=== PATIENT | female | born 1945 | race Caucasian/White ===

== ENCOUNTER 2018-11-11 11:00 | Outpatient (CLI) | payer MEDICARE ==
[~2018-11-11] VITALS: Ht 154 cm; Wt 61.3 kg
[~2018-11-11 11:00] MED LIST: CALC-656 PO; CALC600T12 PO; CITA40TA19 PO; LEVO125T6 PO; MAGN100T3 PO; OMEG1CAP26 PO; ROSU20TA32 PO; TRIA1CAP4 PO
== END 2018-11-11 12:29 | disposition home or self-care (01) ==
LOC: PREOP 11:00
PROVIDERS: ATTEND Podiatrist Foot & Ankle Surgery
DX: Z01.818 Encounter for other preprocedural examination (principal)

== ENCOUNTER 2018-11-14 06:13 | Day surgery (SDC) | payer MEDICARE ==
[2018-11-14] VITALS (11 sets, daily range): BP systolic 109–148; BP diastolic 58–81
[~2018-11-14] VITALS: Ht 154 cm; Wt 61.3 kg
[2018-11-14] MEDS ORDERED: ceFAZolin INJECTION 1,000 MG in WATER (STERILE) FOR INJECTION 10 ML IV ONE (06:15)
[2018-11-14] MEDS ORDERED: CATHETER FLUSH 10 ML SYR IV PRN (06:45)
[2018-11-14] MEDS: LACTATED RINGERS 1,000 ML IV PRN ×2 (06:45→08:50)
[2018-11-14] MEDS ORDERED: fentaNYL INJECTION 100 MCG/2 ML AMP ONE (07:04)
[2018-11-14] MEDS ORDERED: MIDAZOLAM 2 MG/2 ML (VERSED) VIAL ONE (07:04)
[2018-11-14] MEDS ORDERED: LIDOCAINE 1% INJ 20 ML 20 ML VIAL ONE (07:15)
[2018-11-14] MEDS ORDERED: DEXAMETHASONE 10 MG/ML (DECADRON) 1 ML VIAL ONE (07:15)
[2018-11-14] MEDS ORDERED: BUPIVACAINE 0.5% 30 ML (SENSORCAINE) VIAL ONE (07:15)
--- NOTE | 2018-11-14 07:43 | Progress Note-Pre Operative ---
Pre-Operative Progress Note H&P Reviewed The H&P was reviewed, patient examined and no changes noted. Date Seen by Provider: Nov 14, 2018 Time Seen by Provider: 07:42 Date H&P Reviewed: Nov 14, 2018 Time H&P Reviewed: 07:42 Pre-Operative Diagnosis: Metatarsalgia 2nd and 3rd, Hammertoes 2nd and 3rd, left foot JEREMI MALDONADO DPM Nov 14, 2018 07:43
[2018-11-14] MEDS ORDERED: proPOfol 200 MG/20 ML (DIPRIVAN) VIAL IV ONE (08:13)
[2018-11-14] MEDS ORDERED: ONDANSETRON 4 MG/2 ML (SDV) Z0FRAN ONE (08:13)
[2018-11-14] MEDS ORDERED: SEVOFLURANE (ULTANE) 15 ML INHAL SOLN ONE ×7 (08:13→09:43)
[2018-11-14] MEDS ORDERED: LIDOCAINE PF 2% 5 ML (XYLOCAINE) VIAL ONE (08:13)
[2018-11-14] MEDS ORDERED: ONDANSETRON 4 MG/2 ML (SDV) Z0FRAN IVP PRN (09:45)
[2018-11-14] MEDS ORDERED: HYDROcodone/APAP 5 MG/325 MG (LORTAB) TAB PO PRN (09:45)
[2018-11-14] MEDS ORDERED: morphine INJ 10 MG/ML 1ML (SYR OR VIAL) IVP ONE (09:45)
[2018-11-14] MEDS ORDERED: LACTATED RINGERS 1,000 ML IV SCH (09:45)
--- NOTE | 2018-11-14 09:45 | Progress Note-Post Operative ---
Post-Operative Progess Note Surgeon (s)/Visual Artist (s) Surgeon JEREMI MALDONADO DPM Visual Artist: none Pre-Operative Diagnosis Metatarsalgia 2nd and 3rd, Hammertoes 2nd and 3rd, left foot Post-Operative Diagnosis same Procedure & Operative Findings Date of Procedure 11/14/18 Procedure Performed/Findings Reduction of hammertoes 2nd and 3rd, metatarsal osteotomies 2nd and 3rd, left foot Anesthesia Type General Estimated Blood Loss Estimated blood loss (mL): Minimal Specimens/Packing Specimens Removed none JEREMI MALDONADO DPM Nov 14, 2018 09:45
[2018-11-14] MEDS ORDERED: CEPH500C PO (09:49)
[2018-11-14] MEDS ORDERED: ACHD5005 PO (09:49)
[2018-11-14] MEDS ORDERED: fentaNYL INJECTION 100 MCG/2 ML AMP IVP ONE (10:00)
--- NOTE | 2018-11-14 10:20 | Diagnostic Imaging Report ---
Left foot 1001 hours. INDICATION: Postop. AP and lateral views were obtained. FINDINGS: The prior left foot exam of 03/13/2010 noted postoperative changes consistent with osteotomies of the base of the proximal phalanx of the great toe and the neck of the first metatarsal. On this exam, the osteotomies have healed. The orthopedic fixation wire seen previously appear stable. There are now orthopedic fixation wires longitudinally traversing the phalanges and the proximal halves of the second and third metatarsals. There has been an interval osteotomy of the neck of the second and third metatarsals as well. The orthopedic hardware seems to be in good position. There is no fracture or acute bony abnormality appreciated. 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 The Lisfranc joint seems well-maintained. Small calcaneal spur seen previously is again evident. The soft tissues are unremarkable. IMPRESSION: 1. There are recent postoperative changes involving the second and third rays as described above. There is no acute bony abnormality evident. 2. The postoperative changes involving the first ray noted on the prior exam have healed. Dictated by: Dictated on workstation # [id number]
--- NOTE | 2018-11-14 10:35 | Diagnostic Imaging Report ---
INDICATION: Fluoroscopy during left foot surgery. FINDINGS: Fluoroscopy was provided during left foot surgery. 1.2 seconds of fluoroscopic time was utilized. Images demonstrate K wires transfixing the second and third MTP joints. There are screws and osteotomy in the distal first metatarsal. There is osteotomy with a cerclage wire in the proximal phalanx of the great toe as well. IMPRESSION: Fluoroscopy during left foot surgery. Dictated by: Dictated on workstation # [id number]
--- NOTE | 2018-11-14 11:10 | Anesthesia-General Post-Op ---
General Patient Condition Mental Status/LOC: Same as Preop Cardiovascular: Satisfactory Nausea/Vomiting: Absent Respiratory: Satisfactory Pain: Controlled Complications: Absent Post Op Complications Complications None Follow Up Care/Instructions Patient Instructions None needed. Anesthesia/Patient Condition Patient Condition Patient is doing well, no complaints, stable vital signs, no apparent adverse anesthesia problems. No complications reported per nursing. ANGELO NOE CRNA Nov 14, 2018 11:10
--- NOTE | 2018-11-14 15:18 | OPERATIVE REPORT ---
DATE OF SERVICE: 11/14/2018 SURGEON: Tabitha Maldonado DPM. PREOPERATIVE DIAGNOSES: 1. Hammer digit syndrome, second and third digits, left foot. 2. Metatarsalgia, second and third metatarsals, left foot. POSTOPERATIVE DIAGNOSES: 1. Hammer digit syndrome, second and third digits, left foot. 2. Metatarsalgia, second and third metatarsals, left foot. PROCEDURES: 1. Reduction of hammertoes, second and third digits, left foot. 2. Second and third metatarsal osteotomies, left foot. WOUND CLASS: Clean. ANESTHESIA: General. HEMOSTASIS: Pneumatic thigh tourniquet at 250 mmHg. INDICATION: This is a 73-year-old female, who presents complaining of painful toes and forefoot on the left lower extremity. Conservative therapy is met with unsatisfactory results and the patient is agreeable to surgical intervention after risks and complications were discussed at length. No guarantees were extended to the patient and she is willing to proceed. DESCRIPTION OF PROCEDURE: The patient was brought back to the operating room table, placed in secure supine position. Appropriate timeout was performed. Pneumatic thigh tourniquet was placed on left lower extremity over several layers of padding. General anesthetic was then induced. The left foot was anesthetized utilizing 10 mL of 1:1 mixture of 1% Xylocaine, 0.5% Marcaine injected in local infusion to the second and third rays of the left foot. The left foot was then prepped and draped in normal sterile manner. The left foot was then elevated and allowed to exsanguinate after which the tourniquet was inflated to 250 mmHg. Attention was then directed to the dorsal aspect of the second and third rays where approximately 4 cm longitudinal linear incision was created starting at the surgical neck of the second and third metatarsals extending distally to the distal interphalangeal joint area. The incisions were deepened in the same plane with great care to identify and retract all vital neurovascular structures. All the necessary blood vessels were cauterized as encountered to both incisions. The incisions were deepened down to the extensor tendon where a Z slide lengthening was performed overlying the proximal interphalangeal joint area. The extensor tendons were then reflected proximally and the extensor singh released overlying the second and third metatarsal. A dorsal capsulorrhaphy was performed to the second and third metatarsophalangeal joints. This allowed the proximal phalanx to come down into more rectus alignment, also release of the lateral collateral ligaments were performed. This allowed the digit to translocate medially and to come into more rectus alignment. Attention was then directed to the surgical neck of the second and third metatarsals where subperiosteal dissection was performed. Two bone cuts were performed. The distal cut was partial, allowing for lateral cortices to be held intact. The more proximal cut was from medial, lateral and was through and through. The distance between the two bone cuts was approximately 1.5 mm to 2 mm. Next, a sagittal cut was performed between the distal and proximal medial to lateral osteotomies. The cut was performed in such a way that allowed a lateral shelf of approximately 2 mm. The section of bone was withdrawn. This allowed the capital fragment to translocate proximally and shift laterally. Excellent bony apposition was appreciated at this time to both the third and second metatarsal osteotomy site. The wounds were flushed with copious amounts of normal saline. Next, an arthrodesis was performed to the proximal interphalangeal joint of the second and third digits. The same procedure was performed as follows: Dissection was carried out to the proximal interphalangeal joint where the medial and lateral collateral ligaments were released. The head of the proximal phalanx was fashioned into a peg utilizing a power sagittal saw and a power bur. A bur was utilized to create a hole in the base of the middle phalanx. Next, the wounds were flushed with copious amounts of normal saline. A 0.054 K-wire was driven down the digits securing the digits in rectus alignment. The K-wire was then retrograded proximally across the metatarsophalangeal joint and across the second and third metatarsal osteotomies. The excess K-wire was cut and a protective ball placed over the end of the wire. Appropriate alignment was confirmed by intraoperative C-arm. The wounds were flushed once again and closure was performed in layers. Deep closure was performed with 3-0 Vicryl, superficial with 4-0 Vicryl, skin closure with 4-0 Prolene in a horizontal mattress type stitch. Postoperative injection consisted of 13 mL of 1:1 mixture of 1% Xylocaine, 0.5% Marcaine injected in local infusion to the surgical sites. Also, 10 mg of dexamethasone was also utilized proximal to the incisions. Once the tourniquet was released, appropriate cap refill time was noted to all digits of the left foot. Postoperative dressing consisted of Betadine soaked Adaptic, sterile 4 x 4, sterile Kerlix all secured with a Coban wrap. The patient tolerated the anesthesia and procedure well and was transported from the operating room to the recovery area with vital signs stable and vascular status intact to all digits of the left foot and the patient is to follow up in my office in 10 days' period of time or sooner if necessary. She indicates that she has had intolerance to Percocet and narcotics in the past, but has tolerated Vicodin all right. A prescription for Vicodin was then dispensed for moderate to severe pain. Otherwise, she will take her Tylenol or ibuprofen. She was also given a prescription for Keflex. Job ID: [id number] DocumentID: [id number] Dictated Date: 11/14/2018 09:59:02 Uptwister Tender Date: 11/14/2018 15:16:52 Dictated By: TABITHA MALDONADO DPM
== END 2018-11-14 11:55 | disposition home or self-care (01) ==
LOC: SDC 06:13
PROVIDERS: ATTEND Podiatrist Foot & Ankle Surgery
DX: M20.42 Other hammer toe(s) (acquired), left foot (principal); M77.42 Metatarsalgia, left foot; I10 Essential (primary) hypertension; E03.9 Hypothyroidism, unspecified; E78.2 Mixed hyperlipidemia; F41.8 Other specified anxiety disorders; Z90.710 Acquired absence of both cervix and uterus; Z88.5 Allergy status to narcotic agent; Z88.8 Allergy status to other drugs, medicaments and biological substances; Z80.1 Family history of malignant neoplasm of trachea, bronchus and lung; Z80.8 Family history of malignant neoplasm of other organs or systems
CPT/HCPCS: 73620; 87081